=== PATIENT | male | born 1965 | race Two or more races ===

== ENCOUNTER → 2019-11-04 08:42 | Outpatient (CLI) | payer OTHER ==
[2015-02-04 15:37] VITALS: BMI 22.6
--- NOTE | ~2019-11-04 | ST ---
PATIENT:SHERWIN CAMACHO MEDICAL RECORD: [id number] SEX: M LOCATION:[facility] ORDER #: ADMISSION DATE: 11/04/19 AGE OF PATIENT: 54 REFERRING PHYSICIAN: INTERPRETING PHYSICIAN: SIMA CHINCHILLA MD DATE OF SERVICE: 11/04/2019 PROCEDURE: Nuclear stress test. INDICATION: Angina and coronary artery disease. The patient was exercised under Dada protocol for 8 minutes 45 seconds achieving 85% max target heart rate response with 33 mCi of sestamibi injected at peak stress, 11 mCi used previously for rest images. FINDINGS: Gated SPECT reveals preserved ejection fraction at 67% with good wall motioning and thickening and brightening throughout all segments. SPECT imaging Cardiolite was used as myocardial perfusion agent. There are reversible changes anteriorly, apically as well as inferiorly. This includes basal, mid, apical anterior segments as well as the apex itself, basal, mid, apical, and inferior segments. The degree of reversibility is mild to moderate. The amount of myocardium involved is large. OVERALL IMPRESSION: This is a high risk abnormal nuclear stress test. Reversible ischemia anteriorly, apically as well as inferiorly suggestive of multivessel hemodynamically significant coronary artery disease. TRANSINT:[id number] Voice Confirmation ID: [id number] DOCUMENT ID: [id number] SIMA CHINCHILLA MD CC: MARIA ISABEL LAROSE MD [id number] DICTATION DATE: 11/04/191809 TISSUE SPECIALIST: 11/05/19 0121 DEP CLI 11/04/19 [facility] [address] [place] [address]
[~2019-11-04 08:42] MED LIST: ASPIRIN325 MG PO; BRILINTA90 MG PO
== END | disposition home or self-care (01) ==
LOC: D.HCCARDIO 08:42
PROVIDERS: ATTEND Internal Medicine Interventional Cardiology
DX: I25.119 Atherosclerotic heart disease of native coronary artery with unspecified angina pectoris (principal)